=== PATIENT | male | born 1950 | race Caucasian/White ===

== ENCOUNTER → 2018-02-06 11:39 | Outpatient (CLI) | payer OTHER | END | disposition home or self-care (01) | LOC: D.RAD 11:39 | DX: J44.9 Chronic obstructive pulmonary disease, unspecified (principal) ==

== ENCOUNTER → 2018-02-28 08:59 | Outpatient (CLI) | payer OTHER | END | disposition home or self-care (01) | LOC: D.CT 02-25 13:00 | DX: R91.8 Other nonspecific abnormal finding of lung field (principal) ==

== ENCOUNTER → 2019-01-10 09:18 | Outpatient (CLI) | payer OTHER | END | disposition home or self-care (01) | LOC: D.RT 09:18 | PROVIDERS: ATTEND Internal Medicine Pulmonary Disease | DX: R91.8 Other nonspecific abnormal finding of lung field (principal); J44.9 Chronic obstructive pulmonary disease, unspecified ==

== ENCOUNTER → 2019-01-29 12:11 | Outpatient (CLI) | payer OTHER ==
[2019-01-31 11:10] LABS: ANA REFLEX - DIRECT Negative (Negative)
== END | disposition home or self-care (01) ==
LOC: D.LABREF 12:11
PROVIDERS: ATTEND Internal Medicine Pulmonary Disease
DX: R93.89 Abnormal findings on diagnostic imaging of other specified body structures (principal)

== ENCOUNTER → 2019-06-03 10:59 | Outpatient (CLI) | payer OTHER | END | disposition home or self-care (01) | LOC: D.CT 06-02 11:30 | PROVIDERS: ATTEND Internal Medicine Pulmonary Disease | DX: R93.89 Abnormal findings on diagnostic imaging of other specified body structures (principal) ==

== ENCOUNTER 2019-10-14 13:44 | Emergency (ER) | payer OTHER ==
[~2019-10-14] VITALS: Ht 175.3 cm; Wt 75.0 kg
[2019-10-14 13:50] VITALS: Ht 175.3 cm; Wt 75.0 kg
[2019-10-14 14:28] LABS: CALC OSMOLALITY 266 mosm/kg (275-300); CALCIUM 8.8 mg/dL (8.5-10.1); CARBON DIOXIDE 27.2 mmol/L (21.0-32.0); CHLORIDE - SERUM 97 mmol/L (98-107); GLUCOSE 140 mg/dL (74-106); SODIUM 133 mmol/L (136-145); UREA NITROGEN 11 mg/dL (7-18); eGFR NON AFRICAN AMERICAN 79 mL/min (90-120)
[2019-10-14 14:43] LABS: ALBUMIN 3.4 g/dL (3.4-5.0); ALKALINE PHOSPHATASE 101 U/L (30-120); ALT (SGPT) 30 U/L (10-68); BILIRUBIN - TOTAL 0.89 mg/dL (0.2-1.3); CKMB 0.8 U/L (0.0-3.6); CREATINE KINASE 39 UL (21-232); MAGNESIUM - SERUM 2.1 mg/dL (1.8-2.4); PROTEIN - SERUM 6.9 g/dL (6.4-8.2); TROPONIN-I < 0.017 ng/mL (0.000-0.060)
[2019-10-14 14:47] LABS: HEMATOCRIT 35.4 % (42.0-54.0); HEMOGLOBIN 10.6 g/dL (13.5-17.5); MCHC 29.9 g/dL (31.0-37.0); MCV 86.8 fL (80.0-100.0); MEAN PLATELET VOLUME 8.9 fL (7.4-10.4); PLATELET COUNT 239 10x3/uL (130-400); RBC 4.08 10x6/uL (4.20-6.10); WBC 12.2 10x3/uL (4.8-10.8)
[2019-10-14 14:52] LABS: APTT 28.8 SECONDS (22.8-39.4); INR 1.02 (0.85-1.17); PROTIME 13.3 SECONDS (11.6-15.0)
[2019-10-14 15:41] LABS: LYMPHOCYTES 13 % (15-50); MONOCYTES 3 % (2-11); NEUTROPHILS 84 % (40-80)
[2019-10-14 15:42] LABS: PLATELET ESTIMATE NORMAL
[2019-10-14] MEDS ORDERED: LEVOFLOXACIN500 MG PO (18:41)
[2019-10-14] MEDS ORDERED: TESSALON PERLE100 MG PO (18:41)
[2019-10-14] MEDS ORDERED: PREDNISONE10 MG PO (18:41)
[2019-10-14] MEDS ORDERED: ZOVIRAX800 MG PO (18:52)
[2019-10-14 20:15] VITALS: BP 148/89
== END 2019-10-14 20:15 | disposition home or self-care (01) ==
LOC: D.ER 13:44
PROVIDERS: Family Medicine
DX: J40 Bronchitis, not specified as acute or chronic (principal); J44.9 Chronic obstructive pulmonary disease, unspecified; B02.9 Zoster without complications; R07.9 Chest pain, unspecified

== ENCOUNTER 2019-10-26 13:04 | Inpatient (IN) | payer OTHER ==
[~2019-10-26] VITALS: Ht 175.3 cm; Wt 84.1 kg
--- NOTE | ~2019-10-26 | HEMODYNAMI ---
PATIENT:BERNARD ZHENG MEDICAL RECORD: [id number] : 54 [facility]# [id number] ADMISSION DATE: 10/26/19 Generatedon:10/28/201911:43 Patient name: BERNARD ZHENG Patient #: [id number] SSN: [id number] : 1950 Date of study: 10/28/2019 Page: Of Hemodynamic Procedure Report Patient Data Patient Demographics Procedure consent was obtained First Name: BERNARD Gender: Male Last Name: NORM : 1950 [facility] Initial: XENIA Age: 69 year(s) Patient #: [id number] Race: SSN: [id number] Additional ID: [id number] Contact details Address: [address] [place] [address] State: [place] City: [place] Zip code: [address] Admission Admission Data Admission Date: 10/26/2019 Admission Time: 16:37 Arrival Date: 10/28/2019 Arrival Time: 0:00 Admit Source: Other Insurance Payor: Private Room #: D.2112 health insurance [facility] #: [id number] Height (in.): 69 BSA: 5.69 (m2) Height (cm.): 175.26 BMI: 320.35 (kg/m2) Weight (lbs.): 2169.36 Weight (kg.): 984 Lab Results Lab Result Date: 10/28/2019 Lab Result Time: 0:00 Biochemistry Name Units Result Min Max BUN mg/dl 8 --(*---)-- 7 18 Creatinine mg/dl 0.8 --(-*--)-- 0.6 1.3 eGFR ml/min 90 --(*---)-- 90 120 NONAFRICAN CBC Name Units Result Min Max Hematocrit % 28.3 *-(----)-- 42 54 Hemoglobin g/dl 8.4 *-(----)-- 13.5 17.5 Procedure Procedure Types Cath Procedure Diagnostic Procedure [facility] w/Coronaries Sedation Charges Moderate Sedation up to 15 minutes Procedure Description Procedure Date Procedure Date: 10/28/2019 Procedure Start Time: 11:27 Procedure End Time: 11:40 Procedure Staff Name Function Zoraida Anand RT Monitor Devon Lyle MD Performing Physician Elvira Morrow RT Gear Machine Operator General Justine Chacon RN Nurse Pam Bonilla RT Scrub Procedure Data Cath Procedure Fluoroscopy Diagnostic fluoroscopy Total fluoroscopy Time: 1.4 time: 1.4 min min Diagnostic fluoroscopy Total fluoroscopy dose: 287 dose: 287 mGy mGy Contrast Material Contrast Material Type Amount (ml) Isovue 300 59 Entry Location Entry Primary Successful Side Size Upsize Upsize Entry Closure Succes sful Closure Location (Fr) 1 (Fr) 2 (Fr) Remarks Device Remarks Femoral Right 5 Fr Exoseal artery Estimated blood loss: 5 ml Diagnostic catheters Device Type Used For End Catheter Placement MULTIPACK JL 4.0 5Fr Left Coronary catheter Angiography MULTIPACK 3DRC 5Fr Right Coronary catheter Angiography MULTIPACK Pigtail 5 Fr LV Angiography catheter DIAGNOSTIC Pigtail 5Fr LV Angiography catheter ([id number]) Procedure Complications No complications Procedure Medications Medication Administration Route Dosage 0.9% NaCl I.V. 100 ml/hr Oxygen etCO2 Nasal cannula 2 l/min Lidocaine 2% added to field 20 Heparin Flush Bag added to field 2 bags (1000units/500ml NS) Versed I.V. 2 mg Fentanyl I.V. 50 mcg Hemodynamics Rest BSA: 5.69 (m2) HGB: 8.4 (g/dl) O2 Consumption: Estimated: 706.69 (ml/min) O2 Con sumption indexed: Estimated:124.2 (ml/min/m) Heart Rate: 91 (bpm) Pressure Samples Time Site Value (mmHg) Purpose Heart Use Rate(bpm) 11:35 LV 126/0,29 Snapshot 87 Snapshots Pre Cath Intra NCS Post Cath Vital Signs Time Heart Resp SPO2 etCO2 NIBP (mmHg) Rhythm Pain Sedation Rate (ipm) (%) (mmHg) Status Level (bpm) 11:18:51 94 26 95 34.1 129/74(100) NSR 0 (11) 10(A) , No pain 11:23:03 91 25 100 18.9 105/66(81) NSR 0 (11) 10(A) , No pain 11:27:07 90 23 100 28 98/67(82) NSR 0 (11) 9(A) , No pain 11:31:06 90 23 100 31 106/71(87) NSR 0 (11) 9(A) , No pain 11:35:10 86 23 100 32.5 109/65(89) NSR 0 (11) 9(A) , No pain 11:39:16 86 24 100 28.7 105/64(85) NSR 0 (11) 10(A) , No pain Medications Time Medication Route Dose Verified Delivered Reason Notes Eff ectiveness by by 11:17:53 0.9% NaCl I.V. 100 Devon Justine used for ml/hr Valdo Chacon truck engine technician 11:17:59 Oxygen etCO2 2 Devon Justine used for Nasal l/min Valdo Chacon procedure cannula RN 11:18:03 Lidocaine 2% added 20ml Devon Devon for local to vial Valdo Lyle MD anesthetic field 11:18:07 Heparin Flush added 2 Devon Devon used for Bag to bags Valdo Lyle MD procedure (1000units/500ml field NS) 11:20:32 Versed I.V. 2 mg Devon Justine for Valdo Chacon sedation RN 11:20:42 Fentanyl I.V. 50 Devon Justine for mcg Valdo Chacon sedation comsec manager Log Time Note 10:51:01 Informed consent obtained and on chart 10:51:09 Diagnostic Cath Status : Urgent 10:51:56 Lab Result : Hemoglobin 8.4 g/dl 10:51:56 Lab Result : Hematocrit 28.3 % 10:51:56 Lab Result : eGFR NONAFRICAN 90 ml/min 10:51:56 Lab Result : BUN 8 mg/dl 10:51:56 Lab Result : Creatinine 0.8 mg/dl 10:52:19 Arrival Date: 10/28/2019 12:00:00 AM 10:52:20 Admit Source: Other 10:52:24 Patient Height : 69 inches 10:52:33 Patient Weight : 2169.36 lbs 10:52:39 Insurance Payor : Private health insurance 11:00:53 Justine Chacon RN sent for patient. Start room use. 11:00:54 Time tracking: Regular hours (M-F 7:00 - 5:00) 11:00:59 Plan of Care:Hemodynamics will remain stable., Cardiac rhythm will remain stable., Comfort level will be maintained., Respiratory function will remain adequate., Patient/ family verbilizes understanding of procedure., Procedure tolerated without complication., Recovers from procedure without complications.. 11:10:17 Patient received from Med II to CCL 1 Alert and oriented. Tansferred to table in Supine position. 11:10:18 Warm blankets applied, and lindsey hugger turned on for patient comfort. 11:10:19 Correct patient and procedure confirmed by team. 11:10:20 ECG and BP/O2 sat monitors applied to patient. 11:11:21 H&P Date Dictated: 10/26/2019 Within 30 days and on chart.. 11:11:22 Pre-procedure instructions explained to patient. 11:11:23 Pre-op teaching completed and patient verbalized understanding. 11:11:24 Family unavailable. 11:11:27 Patient NPO since Midnight. 11:11:29 Is the patient allergic to Iodine/contrast media? No. 11:11:30 Was the patient premedicated? N/A 11:17:33 Is patient on blood thinner?No 11:17:35 Patient diabetic? No. 11:17:42 Previous problem with sedation/anesthesia? No ? 11:17:44 Snore? Yes 11:17:45 Sleep apnea? No 11:17:45 Vital chart was started 11:17:46 Opens mouth fully? Yes 11:17:46 Deviated septum? No 11:17:47 Sticks out tongue? Yes 11:17:50 Airway obstruction? Yes COPD 11:17:52 Dentures? No ? 11:17:53 0.9% NaCl 100 ml/hr I.V. was administered by Justine Chacon RN; used for procedure; Verbal order read back and verified. 11:17:59 Oxygen 2 l/min etCO2 Nasal cannula was administered by Justine Chacon RN; used for procedure; Verbal order read back and verified. 11:18:00 Pre procedure: right dorsailis pedis pulse 2+ Normal; easily identifiable; not easily obliterated 11:18:03 Pre procedure: left dorsailis pedis pulse 2+ Normal; easily identifiable; not easily obliterated 11:18:03 Lidocaine 2% 20ml vial added to field was administered by Devon Lyle MD; for local anesthetic; Verbal order read back and verified. 11:18:07 Heparin Flush Bag (1000units/500ml NS) 2 bags added to field was administered by Devon Lyle MD; used for procedure; Verbal order read back and verified. 11:18:08 Patient pain scale 0/10 ?. 11:18:16 IV patent on arrival in right forearm with 0.9% NaCl at [facility]. 11:18:18 Lab results completed and on chart. 11:18:26 Risk of Mortality: 0.5 11:18:30 Risk of blood transfusion: 28.0 11:18:36 Risk of JONATHAN: 2.5 11:18:41 Right groin area was prepped with chlora-prep and draped in sterile fashion 11:18:42 Sharps counted by scrub and verified by R.N. 11:18:42 Alarms reviewed by R. N. 11:18:43 --------ALL STOP TIME OUT------ 11:18:43 Physician arrived 11:18:44 Final Timeout: patient, procedure, and site verified with staff and physician. All members of the team are in agreement. 11:18:45 Right groin site verified by team. 11:18:49 Fire Safety Assessment: A--An alcohol-based skin anteseptic being used preoperatively., C--Open oxygen or nitrous oxide is being used., D--An ESU, laser, or fiber-optic light is being used. 11:18:52 Physical assessment completed. ASA score P 2 - A patient with mild systemic disease as per Devon Lyle MD. 11:18:56 1) 90+ Normal kidney functon but urine findings or structural abnormalities or genetic trait point to kidney disease. 11:18:59 Maximum allowable contrast dose (3.7 X eGFR X 0.75)250 ml. 11:19:04 Sedation plan: IV Moderate Sedation Medication:Versed, Fentanyl 11:20:32 Versed 2 mg I.V. was administered by Justine Chacon RN; for sedation; Verbal order read back and verified. 11:20:42 Fentanyl 50 mcg I.V. was administered by Justine Chacon RN; for sedation; Verbal order read back and verified. 11:24:37 Use device set Femoral Dx 11:24:38 ACIST Syringe (22304) opened to sterile field. 11:24:39 Medline Cath Pack ([id number]) opened to sterile field. 11:24:39 Bag Decanter (2002S) opened to sterile field. 11:24:41 ACIST Manifold (98166) opened to sterile field. 11:24:41 ACIST Hand Control (96481) opened to sterile field. 11:24:42 Tegaderm 4 x 4 (1626W) opened to sterile field. 11:24:42 DIAGNOSTIC Multipack 5Fr catheter set (IH4717) opened to sterile field. 11:24:43 SHEATH 5FR Coden (DWI683) opened to sterile field. 11:24:44 EMERALD Guide Wire (169-813) opened to sterile field. 11:27:29 Procedure started. 11:27:30 Full Disclosure recording started 11:27:33 Local anesthetic to right femoral artery with Lidocaine 2% by Devon Lyle MD.INITIAL ACCESS ONLY 11:28:46 A 5 Fr sheath was inserted into the Right Femoral artery 11:28:53 A MULTIPACK JL 4.0 5Fr catheter was advanced over the wire and used for Left Coronary Angiography. 11:29:27 Baseline sample Acquired. 11:30:04 LCA angiography performed. 11:30:07 Injector settings: Ml/sec: 3, Volume: 6, 11:32:08 Catheter removed. 11:32:15 A MULTIPACK 3DRC 5Fr catheter was advanced over the wire and used for Right Coronary Angiography. 11:32:32 RCA angiography performed. 11:32:36 Injector settings: Ml/sec: 3, Volume: 6, 11:33:36 Catheter removed. 11:33:43 A MULTIPACK Pigtail 5 Fr catheter was advanced over the wire and used for LV Angiography. 11:35:48 LV hemodynamics recorded. 11:35:49 LV gram done using CANDELARIO 11:35:52 Injector settings: Ml/sec: 5, Volume: 15, 11:36:07 EF : 55 % 11:36:33 A DIAGNOSTIC Pigtail 5Fr catheter ([id number]) was advanced over the wire and used for LV Angiography. 11:37:04 Catheter removed. 11:37:27 EXOSEAL 5Fr (EX500) opened to sterile field. 11:37:56 Sheath removed intact; hemostasis achieved with Exoseal to the Right Femoral artery. 11:38:05 Procedure ended.(Physican Out) 11:38:31 Fluoroscopy time 01.40 minutes. 11:38:36 Fluoroscopy dose: 287 mGy 11:38:36 Flurop Dose total: 287 11:38:41 Dose Area Product 67071 mGy/cm. 11:38:53 Contrast amount:Isovue 300 59ml. 11:38:55 Maximum allowable dose exceeded? No. 11:38:56 Sharps counted by scrub and verified by R.N. 11:38:58 Insertion/operative site no bleeding no hematoma. 11:39:01 Post-op/insertion site Right Femoral artery dressed using a 4 x 4 and Tegaderm. 11:39:02 Post Procedure Pulses reassessed and unchanged 11:39:05 Post procedure rhythm: unchanged. 11:39:08 Estimated blood loss: 5 ml 11:39:11 Patient needs reinforcement of post procedure teaching. 11:39:11 Post procedure instruction explained to patient.Patient verbalizes understanding. 11:39:31 Procedure type changed to Cath procedure, Diagnostic procedure, LHC, [facility] w/Coronaries, Sedation Charges, Moderate Sedation up to 15 minutes 11:39:32 Procedure and supply charges have been captured, reviewed, submitted and are correct. 11:39:37 Procedure Complication : No complications 11:39:40 Vital chart was stopped 11:39:43 [facility] Findings: mild to moderate CAD (<70%) 11:39:44 Operative report dictated upon procedure completion. 11:39:45 See physician's report for complete and final results. 11:39:48 Report given to Med II. 11:40:01 Patient transfered to Med II with Stretcher. 11:40:04 Full Disclosure recording stopped 11:40:04 Procedure ended. 11:40:08 End room use (Document Last) Device Usage Item Name Manufacture Quantity Catalog Hospital Part Current Minimal L ot# / Number Charge Number Stock Stock Serial# Code ACIST Acist 1 67924 853004 737104 [id number] 20 Syringe Medical (81482) Systems Inc Bag Microtek 1 947891 26465 854988 5 Decanter Medical Inc. () Medline Medline 1 [id number] 015607 80951 756733 5 Cath Pack ([id number]) ACIST Hand Acist 1 58404 468276 969323 552410 5 Control Medical (78525) Systems Inc ACIST Acist 1 92330 252848 981015 735088 5 Manifold Medical (89479) Systems Inc DIAGNOSTIC Cardinal 1 AZ9279 534046 00155 583492 30 Multipack Health 5Fr catheter set (SG6874) Tegaderm 4 3M 1 1626W 613826 551899 331856 5 x 4 (1626W) SHEATH 5FR Terumo 1 HKF713 079134 913915 470840 5 Coden (REG827) EMERALD Cardinal 1 502-455 861518 825909 480517 5 Guide Wire Health (502455) MULTIPACK Cardinal 1 822091 5 JL 4.0 5Fr Health catheter MULTIPACK Cardinal 1 124851 5 3DRC 5Fr Health catheter MULTIPACK Cardinal 1 288898 5 Pigtail 5 Health Fr catheter DIAGNOSTIC Cardinal 1 [id number] 703543 863583 398555 5 Pigtail 5Fr Health catheter (505049Y) EXOSEAL 5Fr Cardinal 1 EX500 506593 728717 100571 10 (EX500) Health Signature Audit County[place] Stage Time Signature Unsigned Intra-Procedure 10/28/2019 Zoraida Michel RT(R) 11:41:41 AM RT(R) 10/28/2019 11:42:28 AM Intra-Procedure 10/28/2019 Zoraida Michel 11:42:42 AM RT(R) Intra-Procedure 10/28/2019 Justine Chacon 11:43:06 AM RN Intra-Procedure 10/28/2019 Devon Lyle MD 11:43:24 [place] [address]
[~2019-10-26 13:04] MED LIST: LEVOFLOXACIN500 MG PO; PREDNISONE10 MG PO; TESSALON PERLE100 MG PO; ZOVIRAX800 MG PO
[2019-10-26 14:03] LABS: HEMOGLOBIN 9.7 g/dL (13.5-17.5); MCH 26.2 pg (26.0-34.0); MCHC 30.3 g/dL (31.0-37.0); MCV 86.5 fL (80.0-100.0); MEAN PLATELET VOLUME 9.5 fL (7.4-10.4); RDW 20.8 % (11.5-14.5)
[2019-10-26 14:10] LABS: PLATELET COUNT 149 10x3/uL (130-400)
[2019-10-26 14:13] LABS: CALC OSMOLALITY 263 mosm/kg (275-300); CALCIUM 8.6 mg/dL (8.5-10.1); CHLORIDE - SERUM 94 mmol/L (98-107); CREATININE - SERUM 0.8 mg/dL (0.6-1.3); GLUCOSE 113 mg/dL (74-106); POTASSIUM - SERUM 3.5 mmol/L (3.5-5.1); SODIUM 132 mmol/L (136-145); UREA NITROGEN 7 mg/dL (7-18); eGFR NON AFRICAN AMERICAN > 90 mL/min (90-120)
[2019-10-26 14:35] LABS: ALBUMIN 2.7 g/dL (3.4-5.0); ALKALINE PHOSPHATASE 82 U/L (30-120); ALT (SGPT) 21 U/L (10-68); BILIRUBIN - TOTAL 0.68 mg/dL (0.2-1.3); CKMB 0.8 U/L (0.0-3.6); CREATINE KINASE 36 UL (21-232); EOSINOPHILS 2 % (0-7); FERRITIN 53 ng/mL (3-244); LYMPHOCYTES 21 % (15-50); MAGNESIUM - SERUM 1.7 mg/dL (1.8-2.4); NEUTROPHILS 77 % (40-80); PLATELET ESTIMATE NORMAL; PRO BNP 81 pg/mL (0-125); PROTEIN - SERUM 6.8 g/dL (6.4-8.2)
[2019-10-26 15:17] LABS: TROPONIN-I < 0.017 ng/mL (0.000-0.060)
[2019-10-26 16:04] VITALS: BP 136/78
[2019-10-26 16:38] VITALS: BP 148/88
[2019-10-26 16:55] LABS: CHOL - HDL RATIO 3.2 ratio (2.3-4.9); LDL-HDL RATIO 1.9 ratio (1.5-3.5)
[2019-10-26 18:08] VITALS: BMI 27.3
[2019-10-26] MEDS ORDERED: LIPITOR40 MG PO (18:51)
[2019-10-26] MEDS ORDERED: FUROSEMIDE20 MG PO (18:52)
--- NOTE | 2019-10-26 19:00 | NUR ---
REPORT RECEIVED. BEDSIDE SHIFT REPORT COMPLETE. PT UP ON SIDE OF BED. RR EVEN AND UNLABORED AT THIS TIME. PROVIDED SANDWICH PER REQUEST. PT REFUSED TELEMETRY BUT STATES HE WILL ALLOW THIS NURSE TO PUT ON HIM IN AM. NO FURTHER NEEDS EXPERSSED. EXTENTION PROVIDED FOR O2 TUBING PER REQUEST. CALL LIGHT IN REACH. WILL CPOC.
[2019-10-26 20:00] VITALS: BP 122/77
[2019-10-26 20:25] LABS: CKMB 1.3 U/L (0.0-3.6); CREATINE KINASE 43 UL (21-232); TROPONIN-I < 0.017 ng/mL (0.000-0.060)
[2019-10-27] VITALS: BP 118/66
[2019-10-27 04:00] VITALS: BP 125/70
[2019-10-27 07:00] LABS: CKMB 0.6 U/L (0.0-3.6); CREATINE KINASE 38 UL (21-232); TROPONIN-I < 0.017 ng/mL (0.000-0.060)
[2019-10-27 08:35] VITALS: Ht 175.3 cm; Wt 84.1 kg
[2019-10-27 09:35] VITALS: BP 116/73
[2019-10-27 11:49] LABS: BASOPHILS 0.2 % (0-2); EOSINOPHILS 0.4 % (0-7); HEMATOCRIT 32.5 % (42.0-54.0); HEMOGLOBIN 9.5 g/dL (13.5-17.5); IMMATURE GRANULOCYTES 0.9 % (0-5); LYMPHOCYTES 18.1 % (15-50); MCHC 29.2 g/dL (31.0-37.0); MEAN PLATELET VOLUME 11.3 fL (7.4-10.4); MONOCYTES 13.5 % (2-11); NEUTROPHILS 66.9 % (40-80); PLATELET COUNT 157 10x3/uL (130-400); RBC 3.65 10x6/uL (4.20-6.10); WBC 4.7 10x3/uL (4.8-10.8)
[2019-10-27 12:16] LABS: % SATURATION 10 % (15-55); IRON 27 ug/dl (35-150); TOTAL IRON BIND CAPACITY 263 ug/dl (260-445); UNSAT IRON BIND CAPACITY 236 ug/dl (150-375)
[2019-10-27 13:05] LABS: CALC OSMOLALITY 268 mosm/kg (275-300); CALCIUM 8.6 mg/dL (8.5-10.1); CARBON DIOXIDE 27.6 mmol/L (21.0-32.0); CHLORIDE - SERUM 94 mmol/L (98-107); CREATININE - SERUM 0.8 mg/dL (0.6-1.3); GLUCOSE 113 mg/dL (74-106); MAGNESIUM - SERUM 1.8 mg/dL (1.8-2.4); POTASSIUM - SERUM 3.5 mmol/L (3.5-5.1); SODIUM 135 mmol/L (136-145); UREA NITROGEN 8 mg/dL (7-18); eGFR NON AFRICAN AMERICAN > 90 mL/min (90-120)
[2019-10-27 18:45] VITALS: BP 111/65
--- NOTE | 2019-10-27 19:42 | NUR ---
RECEIVED BEDSIDE REPORT. PATIENT IS ALERT AND ORIENTED, SITTING UP IN BED. RESPIRATIONS ARE EVEN AND UNLABORED. NO S/S OF DISTRESS. NO C/O PAIN. CALL LGHT WITHIN REACH. WILL CPOC.
[2019-10-27 20:00] VITALS: BP 125/70
[2019-10-28] VITALS: BP 131/69
[2019-10-28 04:00] VITALS: BP 117/62
[2019-10-28 05:12] LABS: BASOPHILS 0.3 % (0-2); EOSINOPHILS 2.2 % (0-7); HEMATOCRIT 28.3 % (42.0-54.0); HEMOGLOBIN 8.4 g/dL (13.5-17.5); IMMATURE GRANULOCYTES 1.1 % (0-5); LYMPHOCYTES 22.4 % (15-50); MCH 25.9 pg (26.0-34.0); MCHC 29.7 g/dL (31.0-37.0); MCV 87.3 fL (80.0-100.0); MEAN PLATELET VOLUME 9.6 fL (7.4-10.4); MONOCYTES 12.8 % (2-11); NEUTROPHILS 61.2 % (40-80); PLATELET COUNT 175 10x3/uL (130-400); RBC 3.24 10x6/uL (4.20-6.10); RDW 20.7 % (11.5-14.5); WBC 3.7 10x3/uL (4.8-10.8)
[2019-10-28 05:25] LABS: CALC OSMOLALITY 262 mosm/kg (275-300); CALCIUM 7.8 mg/dL (8.5-10.1); CARBON DIOXIDE 32.6 mmol/L (21.0-32.0); CHLORIDE - SERUM 95 mmol/L (98-107); CREATININE - SERUM 0.8 mg/dL (0.6-1.3); GLUCOSE 105 mg/dL (74-106); MAGNESIUM - SERUM 1.6 mg/dL (1.8-2.4); POTASSIUM - SERUM 3.1 mmol/L (3.5-5.1); SODIUM 132 mmol/L (136-145); UREA NITROGEN 7 mg/dL (7-18); eGFR NON AFRICAN AMERICAN > 90 mL/min (90-120)
--- NOTE | 2019-10-28 07:20 | NUR ---
RECIEVE REPORT. ALERT AND ORIENTED X4. SITTING UP IN BED WATCHING TV. PATIENT STATES, "I REALLY HOPE THEY LET ME GO TODAY." DENIES ANY NEEDS. CONTINUE PLAN OF CARE AND SAFETY PRECAUTIONS.
[2019-10-28 08:00] VITALS: BP 107/65
[2019-10-28 08:56] LABS: CHOL - HDL RATIO 3.8 ratio (2.3-4.9); LDL-HDL RATIO 2.5 ratio (1.5-3.5)
--- NOTE | 2019-10-28 12:02 | NUR ---
ARRIVE BACK TO ROOM VIA BED FROM FIELD RECORDER. ALERT AND ORIENTED X4. RT GROIN DRESSING CLEAN DRY INTACT. FREE FROM BLEEDING. FREE FROM HEMATOMA. NOTIFY SPOUSE OF OUTCOME. PULE +2 BILATERALLY. BP-118/65, HR-83 SINUS RYTHM, O2-100% WITH 2L NC. CONTINUE PLAN OF CARE AND SAFETY PRECAUTIONS.
[2019-10-28 13:25] VITALS: BP 120/60
[2019-10-28] MEDS ORDERED: LOPRESSOR25 MG PO (14:11)
[2019-10-28] MEDS ORDERED: LIPITOR20 MG PO (14:11)
[2019-10-28] MEDS ORDERED: ASPIRIN81 MG PO (14:11)
--- NOTE | 2019-10-28 18:28 | NUR ---
ALERT AND ORIENTED X4. DISCHARGE INSTRUCTIONS GIVEN VERBALLY AND WRITTEN. DISCHARGE PAPERS SIGNED ON CHART. DC RT FA IV TIP INTACT. PORTABLE OXYGEN ARRIVES. ESCORT TO RIDE VIA WHEELCHAIR. REMAINS FREE FROM INJURY.
== END 2019-10-28 18:30 | disposition home or self-care (01) | DRG 302 ==
LOC: D.ER 13:04 → D.M2 16:37
PROVIDERS: Emergency Medicine; Family Medicine; Internal Medicine Cardiovascular Disease; ADMIT Internal Medicine Nephrology; ATTEND Internal Medicine Nephrology
DX: I25.110 Atherosclerotic heart disease of native coronary artery with unstable angina pectoris (principal); I50.21 Acute systolic (congestive) heart failure; E87.1 Hypo-osmolality and hyponatremia; J96.11 Chronic respiratory failure with hypoxia; J47.0 Bronchiectasis with acute lower respiratory infection; R00.0 Tachycardia, unspecified; J20.9 Acute bronchitis, unspecified; D64.9 Anemia, unspecified; I49.1 Atrial premature depolarization; E78.5 Hyperlipidemia, unspecified; K21.9 Gastro-esophageal reflux disease without esophagitis; I71.9 Aortic aneurysm of unspecified site, without rupture; I11.0 Hypertensive heart disease with heart failure

== ENCOUNTER → 2019-12-06 13:17 | Outpatient (CLI) | payer OTHER ==
[2019-10-27 08:35] VITALS: BMI 27.3
[~2019-12-06 13:17] MED LIST changes: +ASPIRIN81 MG PO; +FUROSEMIDE20 MG PO; +LIPITOR20 MG PO; +LIPITOR40 MG PO; +LOPRESSOR25 MG PO
== END | disposition home or self-care (01) ==
LOC: D.LABREF 13:17
PROVIDERS: ATTEND Internal Medicine Pulmonary Disease
DX: R06.02 Shortness of breath (principal)

== ENCOUNTER → 2019-12-08 12:32 | Outpatient (CLI) | payer OTHER ==
[2019-10-27 08:35] VITALS: BMI 27.3
== END | disposition home or self-care (01) ==
LOC: D.RT 12:32
PROVIDERS: ATTEND Internal Medicine Pulmonary Disease
DX: J44.9 Chronic obstructive pulmonary disease, unspecified (principal); R91.8 Other nonspecific abnormal finding of lung field

== ENCOUNTER 2020-09-22 09:46 | Inpatient (IN) | payer OTHER ==
[~2020-09-22] VITALS: Ht 175.3 cm; Wt 71.7 kg
[2020-09-22] VITALS (12 sets, daily range): BP systolic 123–156; BP diastolic 72–77; BMI 23.3
--- NOTE | ~2020-09-22 | HEMODYNAMI ---
PATIENT:BERNARD ZHENG MEDICAL RECORD: [id number] : 54 [id number] ADMISSION DATE: 09/22/20 Generatedon:114:10 Patient name: BERNARD ZHENG Patient #: [id number] SSN: [id number] : 1950 Date of study: 09/23/2020 Page: Of Hemodynamic Procedure Report Patient Data Patient Demographics Procedure consent was obtained First Name: BERNARD Gender: Male Last Name: NORM : 1950 Middle Initial: XENIA Age: 70 year(s) Patient #: [id number] Race: SSN: [id number] Additional ID: [id number] Contact details Address: [address] [place] [address] State: [place] City: [place] Zip code: [address] Past Medical History Allergies: No known allergies Admission Admission Data Admission Date: 09/22/2020 Admission Time: 10:45 Arrival Date: 09/23/2020 Arrival Time: 0:00 Admit Source: Other Insurance Payor: Private Room #: D.2119 health insurance [facility] #: [id number] Height (in.): 69 BSA: 1.87 (m2) Height (cm.): 175.26 BMI: 23.33 (kg/m2) Weight (lbs.): 157.98 Weight (kg.): 71.66 Lab Results Lab Result Date: 09/23/2020 Lab Result Time: 0:00 Biochemistry Name Units Result Min Max BUN mg/dl 8 --(*---)-- 7 18 CK-MB ng/ml 1.2 --(-*--)-- 0 3.6 Creatinine mg/dl 0.7 --(*---)-- 0.6 1.3 Creatinine l 0.017 -*(----)-- 21 215 Kinase eGFR ml/min 90 --(*---)-- 90 120 NONAFRICAN CBC Name Units Result Min Max Hematocrit % 32.3 *-(----)-- 42 54 Hemoglobin g/dl 10.5 *-(----)-- 13.5 17.5 Procedure Procedure Types Cath Procedure Diagnostic Procedure Cardioversion External Procedure Description Procedure Date Procedure Date: 09/23/2020 Procedure Start Time: 14:00 Procedure End Time: 14:06 Procedure Staff Name Function Bryant Stanford MD Performing Physician Pam Bonilla RT Monitor Evertneeraj Curtiseliazar FONTANEZ Additional personnel Rex Potts RN Nurse Procedure Data Cath Procedure Estimated blood loss: 0 ml Procedure Complications No complications Procedure Medications Medication Administration Route Dosage Oxygen etCO2 Nasal cannula 3 l/min Refer to Anesthesia Notes for Sedation Medications Hemodynamics Rest BSA: 1.87 (m2) HGB: 10.5 (g/dl) O2 Consumption: Estimated: 227.22 (ml/min) O2 Consumption indexed: Estimated:121.51 (ml/min/m) Heart Rate: 84 (bpm) Snapshots Pre Cath Intra NCS Post Cath Vital Signs Time Heart Resp SPO2 etCO2 NIBP (mmHg) Rhythm Pain Sedation Rate (ipm) (%) (mmHg) Status Level (bpm) 13:49:09 79 17 98 0 146/77(122) NSR (Missing) 10(A) 13:53:21 90 18 98 0 138/79(117) NSR (Missing) 10(A) 13:57:29 90 21 98 0 145/83(113) NSR (Missing) 9(A) 14:02:09 84 15 96 0 121/96(109) NSR (Missing) 9(A) 14:06:17 82 19 100 0 132/78(116) NSR (Missing) 10(A) Medications Time Medication Route Dose Verified Delivered Reason Notes Effective ness by by 14:00:36 Oxygen etCO2 3 Bryant Goodman used for Nasal l/min St Mau Potts RN procedure cannula 14:05:40 Refer to Bryant Goodman Anesthesia St Mau Potts RN Notes for Sedation Medications Procedure Log Time Note 12:40:06 Informed consent obtained and on chart 12:46:12 Lab Result : BUN 8 mg/dl 12:46:12 Lab Result : Creatinine 0.7 mg/dl 12:46:12 Lab Result : eGFR NONAFRICAN 90 ml/min 12:46:12 Lab Result : Hemoglobin 10.5 g/dl 12:46:12 Lab Result : CK-MB 1.2 ng/ml 12:46:12 Lab Result : Creatinine Kinase 0.017 l 12:46:13 Lab Result : Hematocrit 32.3 % 12:46:18 Arrival Date: 09/23/2020 12:00:00 AM 12:46:19 Admit Source: Other 12:46:21 Patient Height : 69 inches 12:46:25 Patient Weight : 157.98 lbs 12:46:44 Insurance Payor : Private health insurance 12:48:28 Procedure Status Cardioversion. 12:48:30 Time tracking: Regular hours (M-F 7:00 - 5:00) 12:48:36 Plan of Care:Hemodynamics will remain stable., Cardiac rhythm will remain stable., Comfort level will be maintained., Respiratory function will remain adequate., Patient/ family verbilizes understanding of procedure., Procedure tolerated without complication., Recovers from procedure without complications.. 12:48:43 H&P Date Dictated: 09/22/2020 Within 30 days and on chart.. 12:48:44 Pre-procedure instructions explained to patient. 12:48:45 Pre-op teaching completed and patient verbalized understanding. 12:48:46 Family unavailable. 12:48:48 Patient NPO since Midnight. 12:48:54 Patient allergic to No known allergies 12:49:22 Lab results completed and on chart. 12:49:25 Stress Test: no; N/A ? 12:49:27 Alarms reviewed by R. N. 12:49:28 Sharps counted by scrub and verified by R.N. 13:28:03 Pam REYES(R) sent for patient. Start room use. 13:41:13 Patient received from Med II to CCL 3 Alert and oriented. Tansferred to table in Supine position. 13:41:14 Warm blankets applied, and lindsey hugger turned on for patient comfort. 13:41:15 Correct patient and procedure confirmed by team. 13:41:15 ECG and BP/O2 sat monitors applied to patient. 13:48:01 Vital chart was started 13:48:02 Full Disclosure recording started 13:48:03 Baseline sample Acquired. 13:48:10 Rhythm: atrial flutter 13:48:16 Is the patient allergic to Iodine/contrast media? No. 13:48:18 Was the patient premedicated? Yes 13:48:20 Is patient on blood thinner?Yes 13:48:24 Patient diabetic? No. 13:48:25 ----Pre-sedation anethsthesia assessment.---- 13:48:28 Previous problem with sedation/anesthesia? No ? 13:48:29 Snore? Yes 13:48:31 Sleep apnea? Unknown 13:48:32 Deviated septum? No 13:48:33 Opens mouth fully? Yes 13:48:34 Sticks out tongue? Yes 13:48:37 Airway obstruction? Yes COPD 13:48:41 Dentures? No ? 13:48:47 Patient pain scale 0/10 ?. 13:48:52 IV patent on arrival in right antecubital with 0.9% NaCl at [facility]. 13:53:09 ACC The patient was administered the following blood thiners within the last 24 hours: Xarelto 13:53:20 XARELTO 09/22/2020. 13:54:01 --------ALL STOP TIME OUT------ 13:54:02 Final Timeout: patient, procedure, and site verified with staff and physician. All members of the team are in agreement. 13:54:05 Mid Chest site verified by team. 13:54:09 Fire Safety Assessment: A--An alcohol-based skin anteseptic being used preoperatively., C--Open oxygen or nitrous oxide is being used., D--An ESU, laser, or fiber-optic light is being used. 13:54:12 Physical assessment completed. ASA score P 2 - A patient with mild systemic disease as per Bryant Stanford MD. 13:54:18 Sedation plan: TIVA Medication:Propofol 13:54:20 Evert Oneal DRIVER RECRUITER present and monitoring patient for TIVA. 13:54:30 Quick Combo opened to sterile field. 13:54:54 Quick combo pads placed on patients chest and back. 14:00:36 Oxygen 3 l/min etCO2 Nasal cannula was administered by Rex Potts RN; used for procedure; Verbal order read back and verified. 14:00:39 ------Cardioversion------ 14:00:43 Procedure started. 14:01:21 Defibrillator synced and charged to 50 Joules. 14:01:28 Shock delivered. 14:02:08 Patient cardioverted to sinus rhythm . 14:03:07 Procedure ended.(Physican Out) 14:03:44 Post-procedure physical assessment completed. ASA score P 2 - A patient with mild systemic disease as per Bryant Stanford MD. 14:03:48 Post procedure rhythm: sinus rhythm 14:03:51 Estimated blood loss: 0 ml 14:03:52 Post procedure instruction explained to patient.Patient verbalizes understanding. 14:03:53 Patient needs reinforcement of post procedure teaching. 14:05:40 Refer to Anesthesia Notes for Sedation Medications was administered by Rex Potts RN; ; Verbal order read back and verified. 14:05:40 Procedure and supply charges have been captured, reviewed, submitted and are correct. 14:05:49 Procedure type changed to Cath procedure, Diagnostic procedure, Cardioversion External 14:05:53 Procedure Complication : No complications 14:06:03 Operative report dictated upon procedure completion. 14:06:04 See physician's report for complete and final results. 14:06:07 Report given to Med II. 14:06:10 Patient transfered to Med II with Bed. 14:06:12 Procedure ended. 14:06:12 Full Disclosure recording stopped 14:06:21 End room use (Document Last) 14:06:33 End room use (Document Last) 14:10:18 Vital chart was stopped Device Usage Item Manufacture Quantity Catalog Hospital Part Current Minimal Lot# / Name Number Charge Number Stock Stock Giancarlo al# Code [facility] [employer] 1 [id number] 5 Combo Signature Audit Recluse Stage Time Signature Unsigned Intra-Procedure 09/23/2020 Pam Bonilla 2:06:33 PM RT(R) Intra-Procedure 09/23/2020 Rex Potts RN 2:07:02 PM Intra-Procedure 09/23/2020 Bryant Harmon 2:10:17 PM [address] [place] [address] [place] [address]
[2020-09-22] MEDS ORDERED: BREO ELLIPTA 11 EACH INH (10:05)
[2020-09-22] MEDS ORDERED: FLUTICASONE PRO16 GM NASAL (10:05)
[2020-09-22] MEDS ORDERED: FUROSEMIDE20 MG PO (10:06)
[2020-09-22] MEDS ORDERED: LOPRESSOR25 MG PO (10:07)
[2020-09-22] MEDS ORDERED: HYDROCODON-ACE1 EAC7 PO (10:07)
[2020-09-22] MEDS ORDERED: ATROVENT 0.02%2.5 ML UPD (10:07)
[2020-09-22] MEDS ORDERED: MUPIROCIN22 GM TOPICAL (10:08)
[2020-09-22] MEDS ORDERED: PROAIR HFA8.5 G1 INH (10:10)
[2020-09-22] MEDS ORDERED: SPIRIVA18 MCG INH (10:10)
[2020-09-22 10:17] LABS: BASOPHILS 0 % (0-2); EOSINOPHILS 0.1 % (0-7); HEMATOCRIT 36.5 % (42.0-54.0); IMMATURE GRANULOCYTES 0.6 % (0-5); LYMPHOCYTE ABS# 1.97 10x3/uL (1.32-3.57); LYMPHOCYTES 18.5 % (15-50); MCH 28.8 pg (26.0-34.0); MCHC 32.9 g/dL (31.0-37.0); MCV 87.5 fL (80.0-100.0); MEAN PLATELET VOLUME 10.3 fL (7.4-10.4); MONOCYTES 8.4 % (2-11); NEUTROPHIL ABS# 7.73 10x3/uL (1.78-5.38); NEUTROPHILS 72.4 % (40-80); PLATELET COUNT 169 10x3/uL (130-400); RBC 4.17 10x6/uL (4.20-6.10); RDW 15.3 % (11.5-14.5); WBC 10.7 10x3/uL (4.8-10.8)
[2020-09-22 10:22] LABS: APTT 31.5 SECONDS (22.8-39.4); CALC OSMOLALITY 267 mosm/kg (275-300); CALCIUM 8.8 mg/dL (8.5-10.1); CARBON DIOXIDE 27.4 mmol/L (21.0-32.0); CHLORIDE - SERUM 99 mmol/L (98-107); CREATININE - SERUM 0.7 mg/dL (0.6-1.3); GLUCOSE 105 mg/dL (74-106); INR 1.12 (0.85-1.17); PROTIME 13.3 SECONDS (11.6-15.0); SODIUM 135 mmol/L (136-145); UREA NITROGEN 8 mg/dL (7-18); eGFR NON AFRICAN AMERICAN > 90 mL/min (90-120)
[2020-09-22 10:38] LABS: ALBUMIN 3.5 g/dL (3.4-5.0); ALKALINE PHOSPHATASE 130 U/L (30-120); ALT (SGPT) 22 U/L (10-68); BILIRUBIN - TOTAL 0.82 mg/dL (0.2-1.3); CKMB 1.2 U/L (0.0-3.6); CREATINE KINASE 64 UL (21-232); PROTEIN - SERUM 7.4 g/dL (6.4-8.2); TROPONIN-I < 0.017 ng/mL (0.000-0.060)
[2020-09-22 16:22] LABS: BILIRUBIN NEGATIVE (NEGATIVE); KETONE SMALL mg/dL (NEGATIVE); NITRITE NEGATIVE (NEGATIVE); UROBILINOGEN NORMAL mg/dL (< 2)
[2020-09-22 16:24] LABS: UDS - AMPHET NEGATIVE QUAL (NEGATIVE); UDS - BARB NEGATIVE QUAL (NEGATIVE); UDS - BENZO NEGATIVE QUAL (NEGATIVE); UDS - COCAINE NEGATIVE QUAL (NEGATIVE); UDS - OPIATE NEGATIVE QUAL (NEGATIVE); UDS - PCP NEGATIVE QUAL (NEGATIVE); UDS - THC POSITIVE QUAL (NEGATIVE)
--- NOTE | 2020-09-22 20:11 | NUR ---
RECIEVED SITTING UP ON SIDE OF BED. ALERT AND ORIENTED X4. UP AD KAELA. O2 @ 2 LITERS PER N/C. IV TO RT AC WITH NS AT 125CC/HR. DSG CDI. TELEMETRY IN PLACE. REQUESTING OVER THE COUNTER SLEEP AIDE AT . CALLED ILDEFONSO BOONE WITH NEW ORDER FOR MELATOIN. DENIES ANY OTHER NEEDS.
[2020-09-23] VITALS: BP 153/67
[2020-09-23 06:14] LABS: HEMATOCRIT 32.3 % (42.0-54.0); HEMOGLOBIN 10.5 g/dL (13.5-17.5); LYMPHOCYTE ABS# 1.74 10x3/uL (1.32-3.57); MCH 28.5 pg (26.0-34.0); MCHC 32.5 g/dL (31.0-37.0); MCV 87.5 fL (80.0-100.0); MEAN PLATELET VOLUME 10.4 fL (7.4-10.4); NEUTROPHIL ABS# 6.42 10x3/uL (1.78-5.38); PLATELET COUNT 154 10x3/uL (130-400); RBC 3.69 10x6/uL (4.20-6.10); RDW 15.5 % (11.5-14.5); WBC 8.9 10x3/uL (4.8-10.8)
[2020-09-23 06:22] VITALS: BP 136/74
[2020-09-23 06:30] LABS: ALBUMIN 2.7 g/dL (3.4-5.0); ALKALINE PHOSPHATASE 105 U/L (30-120); ALT (SGPT) 17 U/L (10-68); BILIRUBIN - TOTAL 0.69 mg/dL (0.2-1.3); CALC OSMOLALITY 264 mosm/kg (275-300); CALCIUM 8.2 mg/dL (8.5-10.1); CARBON DIOXIDE 26.4 mmol/L (21.0-32.0); CHLORIDE - SERUM 100 mmol/L (98-107); CREATININE - SERUM 0.7 mg/dL (0.6-1.3); GLUCOSE 124 mg/dL (74-106); MAGNESIUM - SERUM 1.8 mg/dL (1.8-2.4); POTASSIUM - SERUM 3.6 mmol/L (3.5-5.1); PROTEIN - SERUM 6.2 g/dL (6.4-8.2); SODIUM 133 mmol/L (136-145); UREA NITROGEN 7 mg/dL (7-18); eGFR NON AFRICAN AMERICAN > 90 mL/min (90-120)
[2020-09-23 06:43] LABS: EOSINOPHILS 1 % (0-7); LYMPHOCYTES 13 % (15-50); NEUTROPHILS 86 % (40-80); PLATELET ESTIMATE NORMAL
--- NOTE | 2020-09-23 07:13 | NUR ---
RECEIVE BEDSIDE SHIFT REPORT. SITTING UP ON SIDE OF BED. NPO AFTER MIDNIGHT FOR CARDIVERSION TODAY. DENIES ANY NEEDS AT THIS TIME. ALERT AND ORIENTED X4. CALL LIGHT IN REACH. CONTINUE POC AND SAFETY PRECAUTIONS.
[2020-09-23 08:32] VITALS: BP 132/66
[2020-09-23 10:56] VITALS: Ht 175.3 cm; Wt 71.7 kg
[2020-09-23 11:00] VITALS: BP 126/70
[2020-09-23] MEDS ORDERED: BETAPACE 80 MG80 MG PO (15:20)
[2020-09-23] MEDS ORDERED: XARELTO20 MG PO (15:21)
--- NOTE | 2020-09-23 17:10 | NUR ---
D/C RIGHT HAND IV, TIP INTACT. D/C RIGHT AC IV, TIP INTACT. DISCHARGE INSTRUCTIONS GIVEN VERBALLY AND HANDOUTS PROVIDED. TAKEN DOWN TO SPOUSE AT ED ENTRANCE VIA WHEELCHAIR. REMAINS FREE FROM INJURY.
--- NOTE | 2020-09-23 19:50 | MORECARE ---
CASE MANAGEMENT DISCHARGE SUMMARY PATIENT: BERNARD ZHENG UNIT: [id number] ADM DATE: 09/22/20 AGE: 70 : 52 SEX: M ROOM/BED: D.9135 AUTHOR: TRUPTI MOHAN PHYSICIAN: REFERRING PHYSICIAN: WHIT LOZANO MD DATE OF SERVICE: 09/23/20 Discharge Plan Patient Name: BERNARD ZHENG Facility: [facility]:[place] : 1950 Planned Disposition: Home Anticipated Discharge Date: Discharge Date: 09/23/2020 Expected LOS: Initial Reviewer: [email or web address] Initial Review Date: 09/22/2020 Generated: 09/23/20 8:50 pm Comments DCP- Discharge Planning Updated by [email or web address]: Jesica Rg on 09/23/20 6:[address] Patient Name: BERNARD ZHENG Admission Status: ER Accout number: [id number] Admission Date: 09-22-2020 : 1950 Admission Diagnosis: Attending: WHIT BRUNNER Current LOS: 1 Anticipated DC Date: Planned Disposition: Home Primary Insurance: [employer] Discharge Planning Comments: CM spoke with patient to complete initial dc planning assessment. CM educated patient on the CM role and verbal consent given by patient to complete assessment. Patient lives at home with family. Patient is independent. At discharge patient plans to return home and feels this is a safe discharge. CM discussed availability of home health, rehab services, and medical equipment. Patient will have family to transport home. Patient denied known discharge needs at this time. CM will continue to follow and will assist as needed with dc plans/needs. First Breaker Feeder: Jesica Rg DCPIA - Discharge Planning Initial Assessment Updated by [email or web address]: Jesica Rg on 09/23/20 7:47 pm * Is the patient Alert and Oriented? Yes * How many steps to enter\exit or inside your home? 3-4 * PCP Victor M * Pharmacy [facility] - [place] * Preadmission Environment Home with Family * ADLs Independent * Equipment Nebulizer * Other Equipment home/ portable 02 * List name and contact numbers for known caregivers / representatives who currently or will assist patient after discharge: Paige Zheng - - [phone] * Verbal permission to speak to the caregivers and representatives has been obtained from the patient. Yes * Community resources currently utilized None * Additional services required to return to the preadmission environment? No * Can the patient safely return to the preadmission environment? Yes * Has this patient been hospitalized within the prior 30 days at any hospital? No Patient Name: BERNARD ZHENG Page 11138 at 1948 All edits/amendments must be made on the electronic document DICTATION DATE: 09/23/201949 HEALTH AND PHYSICAL EDUCATION TEACHER: MANUEL 09/23/201949 RPT#: [id number] DC DATE:09/23/20 STATUS: DIS IN [facility] [address] [place] [address] END OF REPORT
--- NOTE | 2020-09-24 09:41 | OP ---
PATIENT NAME: BERNARD ZHENG MEDICAL RECORD: [id number] :54 LOCATION:D.M2 D.2119 ADMISSION DATE:09/22/20 SURGEON: ARNOLD MCKNIGHT MD DATE OF OPERATION: 09/23/2020 PROCEDURE: Cardioversion. INDICATION: Atrial flutter, variable block. PROCEDURE IN DETAIL: After general sedation via TIVA via anesthesia, a single synchronized shock at 50 joules was successful in restoring atrial flutter to normal sinus rhythm. IMPRESSION: Successful cardioversion on Bernard Zheng. During the procedure, the patient was monitored continuously pulse oximetry, telemetry, noninvasive blood pressure monitoring. TRANSINT:[id number] Voice Confirmation ID: [id number] DOCUMENT ID: [id number] ARNOLD MCKNIGHT MD at 0941 CC: [id number] DICTATION DATE: 09/23/20 1413 CPAS: 09/23/20 1855 DIS IN 09/23/20 [id number] [place] [address]
--- NOTE | 2020-09-24 10:31 | MORECARE ---
CASE MANAGEMENT DISCHARGE SUMMARY PATIENT: BERNARD ZHENG UNIT: [id number] ADM DATE: 09/22/20 AGE: 70 : 52 SEX: M ROOM/BED: D.6911 AUTHOR: TRUPTI MOHAN PHYSICIAN: REFERRING PHYSICIAN: WHIT LOZANO MD DATE OF SERVICE: 09/24/20 Discharge Plan Patient Name: BERNARD ZHENG Facility: [facility]:[place] : 1950 Planned Disposition: Home Anticipated Discharge Date: Discharge Date: 09/23/2020 Expected LOS: Initial Reviewer: [email or web address] Initial Review Date: 09/22/2020 Generated: 09/24/20 11:30 am Comments DCP- Discharge Planning Updated by [email or web address]: Jesica Rg on 09/23/20 6:[address] Patient Name: BERNARD ZHENG Admission Status: ER Accout number: [id number] Admission Date: 09-22-2020 : 1950 Admission Diagnosis: Attending: WHIT BRUNNER Current LOS: 1 Anticipated DC Date: Planned Disposition: Home Primary Insurance: [employer] Discharge Planning Comments: CM spoke with patient to complete initial dc planning assessment. CM educated patient on the CM role and verbal consent given by patient to complete assessment. Patient lives at home with family. Patient is independent. At discharge patient plans to return home and feels this is a safe discharge. CM discussed availability of home health, rehab services, and medical equipment. Patient will have family to transport home. Patient denied known discharge needs at this time. CM will continue to follow and will assist as needed with dc plans/needs. Media Relations Associate: Jesica Rg DCPIA - Discharge Planning Initial Assessment Updated by [email or web address]: Jesica Rg on 09/23/20 7:47 pm * Is the patient Alert and Oriented? Yes * How many steps to enter\exit or inside your home? 3-4 * PCP Victor M * Pharmacy [facility] [place] * Preadmission Environment Home with Family * ADLs Independent * Equipment Nebulizer * Other Equipment home/ portable 02 * List name and contact numbers for known caregivers / representatives who currently or will assist patient after discharge: Paige Zheng - - [phone] * Verbal permission to speak to the caregivers and representatives has been obtained from the patient. Yes * Community resources currently utilized None * Additional services required to return to the preadmission environment? No * Can the patient safely return to the preadmission environment? Yes * Has this patient been hospitalized within the prior 30 days at any hospital? No Last DP export: 09/23/20 6:51 p Patient Name: BERNARD ZHENG Page 45230 at 1031 All edits/amendments must be made on the electronic document DICTATION DATE: 09/24/20 1030 LENDING MANAGER: MANUEL 09/24/20 1030 RPT#: [id number] DC DATE:09/23/20 STATUS: DIS IN [facility] [address] [place] [address] END OF REPORT
== END 2020-09-23 17:10 | disposition home or self-care (01) | DRG 309 ==
LOC: D.ER 09:46 → D.M2 10:45
PROVIDERS: Family Medicine; ADMIT Family Medicine Adult Medicine; ATTEND Family Medicine Adult Medicine
DX: I48.92 Unspecified atrial flutter (principal); J44.1 Chronic obstructive pulmonary disease with (acute) exacerbation; I10 Essential (primary) hypertension; E78.5 Hyperlipidemia, unspecified; I07.1 Rheumatic tricuspid insufficiency